=== PATIENT | female | born 1945 | race Caucasian/White ===

== ENCOUNTER 2022-09-18 10:59 | Outpatient (CLI) | payer MEDICARE, BC, SELFPAY | END 2022-09-18 11:00 | disposition home or self-care (01) | LOC: NFLDREF 09-20 06:03 | PROVIDERS: Visit Provider Registered Nurse | DX: R53.83 Other fatigue (principal); N39.0 Urinary tract infection, site not specified | CPT/HCPCS: 87086 ==